=== PATIENT | female | born 1980 | race Caucasian/White ===

== ENCOUNTER 2020-11-21 09:42 | Day surgery (SDC) | payer BC ==
[~2020-11-21 09:42] MED LIST: Albuterol 0.083% 2.5 MG/3 ML Neb Soln NEB PRN; Lactated Ringers 1,000 ML IV SCH; Lidocaine 1%/Sod Bicarbonate in NS 8.4% 1 ML Syringe IDERM PRN; Nicotine 21 MG/24 Hr Patch TRDERM SCH; Oxytocin 10 Units/1 ML SDV ONE; Scopolamine 1.5 MG Transdermal Patch TOP SCH; Sodium Chloride 0.9% 10 ML Syringe FLUSH PRN
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
[2020-11-21] MEDS ORDERED: Acetaminophen 325 MG Tab PO ONE (11:32)
[2020-11-21] MEDS ORDERED: Pregabalin 25 MG Cap PO STA (11:33)
[2020-11-21] MEDS ORDERED: fentaNYL 100 MCG/2 ML SDV IVPUSH PRN (11:44)
[2020-11-21] MEDS ORDERED: Ondansetron 4 MG/2 ML SDV IVPUSH PRN (11:44)
[2020-11-21] MEDS ORDERED: HYDROmorphone 0.5 MG/0.5 ML Syringe IVPUSH PRN (11:44)
[2020-11-21] MEDS ORDERED: Bupivacaine 0.25% 10 ML SDV ONE (11:49)
[2020-11-21] MEDS ORDERED: Propofol 200 MG/20 ML SDV ONE ×2 (11:54→12:47)
[2020-11-21] MEDS ORDERED: Midazolam 1 MG/ML 2 ML SDV ONE (11:55)
[2020-11-21] MEDS ORDERED: fentaNYL 250 MCG/5 ML SDV ONE (11:55)
[2020-11-21] MEDS ORDERED: Lidocaine 1% 4 ML ONE (11:56)
[2020-11-21] MEDS ORDERED: Lactated Ringers 500 ML ONE (12:24)
[2020-11-21] MEDS ORDERED: ceFAZolin 1 GM Vial ONE (12:30)
[2020-11-21] MEDS ORDERED: Lidocaine 1% with EPINEPHrine 1:100,000 10 ML MDV ONE (12:32)
[2020-11-21] MEDS ORDERED: Ketorolac 30 MG/ML SDV ONE (12:46)
[2020-11-21] MEDS ORDERED: Ondansetron 4 MG/2 ML SDV ONE (13:06)
--- NOTE | 2020-11-21 13:25 | PCM48HPAN ---
Post Anesthesia Note - EVALUATION WITHIN 48HRS OF ANESTHETIC Vital Signs in Normal Range: Yes Patient Participated in Evaluation: Yes Respiratory Function Stable: Yes Airway Patent: Yes Cardiovascular Function Stable: Yes Hydration Status Stable: Yes Pain Control Satisfactory: Yes Nausea and Vomiting Control Satisfactory: Yes Mental Status Recovered: Yes Vital Signs: Last Vital Signs Temp 36.8 C 11/21/20 09:34 Pulse 64 11/21/20 09:34 Resp 16 11/21/20 09:34 BP 127/65 11/21/20 09:34 Pulse Ox 99 11/21/20 10:40 - COMMENTS/OBSERVATIONS Free Text/Narrative:: told patient to take her suboxone WERO after the case
[2020-11-21 14:11] VITALS: BP 122/68; PULSE 75
--- NOTE | 2020-12-03 07:22 | PCM.OPNOTE ---
- General Post-Op/Procedure Note Date of Surgery/Procedure: 11/21/20 Operative Procedure(s): mass excision left leg Pre Op Diagnosis: subcutaneous mass left leg Post-Op Diagnosis: Same Anesthesia Technique: Local, MAC Primary Surgeon: Trell Diego Anesthesia Provider: Anette Acosta [place] Maker: Blanca Díaz EBL in mLs: 5 Complications: None Condition: Good
--- NOTE | 2020-12-03 08:28 | OR ---
DATE OF OPERATION: 11/21/2020 SURGEON: Trell Diego MD OPERATION PERFORMED: Mass excision of left leg. PREOPERATIVE DIAGNOSIS: Subcutaneous mass, left leg. POSTOPERATIVE DIAGNOSIS: Subcutaneous mass, left leg. ANESTHESIA: Local MAC. ANESTHESIA PROVIDER: Anette Acosta. DRIVER GUARD: Blanca Díaz PA-C ESTIMATED BLOOD LOSS: Less than 5 mL. COMPLICATIONS: None. CONDITION: Stable. DESCRIPTION OF PROCEDURE: The patient was identified in the preoperative holding area. Proper site was marked and identified by surgeon. The patient was taken back to the operative theater, where after adequate anesthesia, the patient's left lower extremity was sterilely prepped and draped in usual sterile fashion. An OR time-out was performed. The patient received 2 g of IV Ancef. Left lower extremity was then exsanguinated with Esmarch. An Esmarch was used as a tourniquet near the knee. At this time, the mass was identified near the posterolateral side of the posterior 3rd of the left leg. It was palpable through the skin. 1% lidocaine without epinephrine and 0.25% Marcaine without epinephrine were used to anesthetize around the incisional site. A longitudinal incision was then created. Deep and subcutaneous tissue were retracted. The mass was identified. It appeared to be a neural origin of most likely the sural nerve appearing roughly 2 cm x 2 cm. At this time, this was then resected. No other mass or invasion of tissue was noted. Adequate saline was irrigated through the wound. 2-0 Vicryl was placed subcutaneously and ren used for closure of the skin. The patient had sterile soft dressing applied and tolerated the procedure well. MMODAL /[id number]
== END 2020-11-21 13:48 | disposition home or self-care (01) ==
LOC: JD.SDS 09:42
PROVIDERS: ATTEND Orthopaedic Surgery
DX: D36.10 Benign neoplasm of peripheral nerves and autonomic nervous system, unspecified (principal); F17.210 Nicotine dependence, cigarettes, uncomplicated; Z79.899 Other long term (current) drug therapy; Z98.890 Other specified postprocedural states
CPT/HCPCS: 27618; 81025; 94640; A9270; J0690; J1885; J2250; J2405; J2704; J3010; J3490; J7120; 00400; J2590